=== PATIENT | female | born 1955 | race Caucasian/White ===

== ENCOUNTER 2025-01-05 08:53 | Outpatient (CLI) | payer MEDICARE | END 2025-01-05 08:54 | disposition home or self-care (01) | LOC: CSHMAMMO 08:53 | PROVIDERS: ATTEND Family Medicine Sports Medicine | DX: Z12.31 Encounter for screening mammogram for malignant neoplasm of breast (principal); Z80.3 Family history of malignant neoplasm of breast; Z91.89 Other specified personal risk factors, not elsewhere classified; N64.89 Other specified disorders of breast | CPT/HCPCS: 77063; 77067 ==

== ENCOUNTER 2025-01-12 09:32 | Outpatient (CLI) | payer MEDICARE | END 2025-01-12 09:33 | disposition home or self-care (01) | LOC: CSHMAMMO 09:32 | PROVIDERS: ATTEND Family Medicine Sports Medicine | DX: N64.89 Other specified disorders of breast (principal) | CPT/HCPCS: 76642; 77065; G0279 ==